=== PATIENT | female | born 2000 ===

== ENCOUNTER 2018-07-17 20:48 | Outpatient (REF) | payer BC, SELFPAY ==
[2018-07-17 21:37] LABS: Anion Gap 8.7 mmol/L (3-11); BUN 11 mg/dL (7-18); CO2 27.3 mmol/L (21.0-32.0); CREATININE 0.79 mg/dL (0.55-1.02); Calcium 8.8 mg/dL (8.5-10.1); Chloride 105 mmol/L (98-107); Glucose 91 mg/dL (70-100); Potassium 4.3 mmol/L (3.5-5.1); Sodium 141 mmol/L (136-145)
== END 2018-07-17 21:08 ==
LOC: NCHCN 20:48
PROVIDERS: PCP Family Medicine; Visit Provider Family Medicine
DX: E28.2 Polycystic ovarian syndrome (principal)
CPT/HCPCS: 80048

== ENCOUNTER 2019-02-08 10:08 | Outpatient (REF) | payer BC, SELFPAY ==
[2019-02-08 21:09] LABS: Hemoglobin A1C 5.4 % (4.5-6.2)
== END 2019-02-08 10:28 ==
LOC: NCHCN 10:08
PROVIDERS: PCP Family Medicine; Visit Provider Family Medicine
DX: K59.00 Constipation, unspecified (principal); E28.2 Polycystic ovarian syndrome; E66.9 Obesity, unspecified
CPT/HCPCS: 83036; 84443

== ENCOUNTER → 2020-02-28 22:18 | Outpatient (REF) | payer BC, SELFPAY ==
[2020-02-28 21:25] LABS: HCT 37.1 % (36.0-46.0); Mean Corp. HGB Concentration 32.3 g/dL (32.0-36.0); Mean Corpuscular Hemoglobin 28.3 pg (27.0-33.0); Mean Corpuscular Volume 87.5 fL (80-95); Mean Platelet Volume 11.2 fL (8.0-11.0); Platelet Count 303 x1000/uL (130-400); RBC 4.24 m/cumm (4.00-5.20); RBC Distribution Width 13.3 % (11.7-14.6); White Blood Cell Count 8.82 k/cumm (4.4-10.8)
[2020-02-28 21:47] LABS: ALT 25 U/L (14-59); AST 15 U/L (15-37); Albumin 3.9 g/dL (3.4-5.0); Alkaline Phosphatase 64 U/L (46-116); BUN 11 mg/dL (7-18); Bilirubin, Total 0.5 mg/dL (0.2-1.0); CREATININE 0.63 mg/dL (0.55-1.02); Calcium 8.7 mg/dL (8.5-10.1); Chloride 103 mmol/L (98-107); Glucose 82 mg/dL (74-106); Magnesium 1.9 mg/dL (1.8-2.4); Potassium 4.3 mmol/L (3.5-5.1); Sodium 140 mmol/L (136-145); TSH 1.55 uIU/mL (0.36-3.74); Total Protein 6.9 g/dL (6.4-8.2)
== END ==
LOC: NCHCN 22:18
PROVIDERS: PCP Family Medicine; Visit Provider Family Medicine
DX: R00.0 Tachycardia, unspecified (principal); E66.9 Obesity, unspecified
CPT/HCPCS: 80053; 85027; 83735; 84443

== ENCOUNTER 2020-09-09 19:15 | Outpatient (REF) | payer BC, SELFPAY ==
[2020-09-11 10:39] LABS: Varicella IgG Antibody Positive (See Note)
== END 2020-09-09 19:35 ==
LOC: NCHCN 19:15
PROVIDERS: PCP Family Medicine; Visit Provider Family Medicine
DX: Z86.19 Personal history of other infectious and parasitic diseases (principal)
CPT/HCPCS: 86787

== ENCOUNTER 2020-11-27 11:39 | Outpatient (REF) | payer BC, SELFPAY ==
[2020-11-30 13:04] LABS: IgA 240 mg/dL (85-499); Interpretation (See Note); Tissue Transglutaminase IgA <1.2 U/mL (<4.0)
== END 2020-11-27 11:40 | disposition home or self-care (01) ==
LOC: NCHCN 11:39
PROVIDERS: PCP Family Medicine; Visit Provider Family Medicine
DX: K59.00 Constipation, unspecified (principal)
CPT/HCPCS: 82784; 83516

== ENCOUNTER 2021-08-19 15:40 | Outpatient (REF) | payer BC, SELFPAY ==
--- NOTE | 2021-08-19 15:00 | PAPFT_PTH ---
PATIENT: Caty Zarco LOC: [facility] U#:[id number] AGE/SX: 20/F ROOM: RE08/19/[address]: Kassie De Jesus : 2000 BED: DIS: 08/19/2021 SPEC #: [id number] RECD: 08/20/21 12:49 STATUS: WEST REQ #: [id number] EDITH: 08/19/21 15:[address]: Kassie De Jesus DEPT: [facility] Cytology RECD BY: Kathryn Lainez ENTERED: 08/20/21 12:49 SP TYPE: PAPFT OTHR DR: Sophie Watkins Tissues: 1 - CX/ENDOCX FOR PAP SMEARS Procedures: PAP THIN PREP/[facility] Screening Comments: [id number] (CHLAMYDIA/GC)
[2021-08-19 21:33] LABS: Abs Immature Grans 0.02 10^3/uL (0.0-0.06); Absolute Basophil Count 0.04 10^3/uL (0.0-0.2); Absolute Eosinophil Count 0.17 10^3/uL (0.0-0.7); Absolute Lymphocyte Count 2.39 10^3/uL (1.2-3.4); Absolute Monocyte Count 0.45 10^3/uL (0.1-0.8); Basophils % 0.5; HCT 34.3 % (36.0-46.0); HGB 10.9 g/dL (11.2-15.7); Immature Grans % 0.2; Lymphocytes % 27.9; MCH 28.5 pg (27.0-33.0); MCHC 31.8 % (32.0-36.0); MCV 89.8 fL (80-95); MPV 10.8 fL (8.0-11.0); Monocytes % 5.3; Neutrophils % 64.1; Nucleated RBC 0 %; Platelet Count 281 10^3/uL (130-400); RBC 3.82 10^6/uL (3.93-5.22); RDW 12.3 % (11.7-14.6); RDW-SD 40.2 fL; WBC 8.57 10^3/uL (4.4-10.8)
[2021-08-19 22:39] LABS: ALT 33 U/L (14-59); AST 14 U/L (15-37); Albumin 3.7 g/dL (3.4-5.0); Alkaline Phosphatase 73 U/L (46-116); BUN 14 mg/dL (7-18); Bilirubin, Total 0.5 mg/dL (0.2-1.0); CREATININE 0.8 mg/dL (0.55-1.02); Calcium 8.7 mg/dL (8.5-10.1); Chloride 108 mmol/L (98-107); Glucose 95 mg/dL (74-106); Potassium 4.1 mmol/L (3.5-5.1); Sodium 142 mmol/L (136-145); TSH (W/Ref FT4) 1.14 uIU/mL (0.36-3.74); Total Protein 6.7 g/dL (6.4-8.2)
[2021-08-23 15:36] LABS: Chlamydia Result Negative (Negative); GC Result Negative (Negative)
== END 2021-08-19 15:41 | disposition home or self-care (01) ==
LOC: NCHCN 15:40
PROVIDERS: PCP Family Medicine; Visit Provider Family Medicine
DX: N95.1 Menopausal and female climacteric states (principal); Z12.4 Encounter for screening for malignant neoplasm of cervix; Z11.3 Encounter for screening for infections with a predominantly sexual mode of transmission; R10.2 Pelvic and perineal pain
CPT/HCPCS: 80053; 87491; 87591; 88142; 84443; 85025; 86140